=== PATIENT | female | born 1980 | race Caucasian/White ===

== ENCOUNTER 2022-07-06 16:16 | Emergency (ER) | payer OTHER, SELFPAY ==
[2022-07-06 16:38] VITALS: BP 138/92; PULSE 92; RESP 18; TEMP 36.7; O2SAT 100; BMI 51.5
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
== END 2022-07-06 17:31 | disposition home or self-care (01) ==
LOC: ED 17:25
PROVIDERS: Emergency Provider Emergency Medicine Emergency Medical Services
DX: T59.811A Toxic effect of smoke, accidental (unintentional), initial encounter (principal); Y92.038 Other place in apartment as the place of occurrence of the external cause
CPT/HCPCS: 82375; 99283; 99284

== ENCOUNTER 2024-12-26 20:55 | Emergency (ER) | payer OTHER, SELFPAY ==
--- OUTSIDE RECORDS SUMMARY | 2024-12-26 20:58 | XMS_ITS | Clinical Summary ---
Author Organization [facility] Address [address] [place] [id number] Care Team Providers Care [employer] Name Role Phone Pcp, No Primary Care Provider Unavailabl e Allergies No known active allergies Medications ferrous sulfate, 65 mg elemental, (Iron, Ferrous Sulfate,) tabletIndicatio ns:Iron deficiency anemia secondary to inadequate dietary iron intake Take one tablet by mouth once to twice daily. Take on an empty stomach or with something acidic. 90 Tablet 1 4 Active Active Problems Problem Noted Date Diagnosed Date Iron deficiency anemia, unspecified 07/11/2012 Immunizations Immunization Administration Dates Next Due COVID-19 vaccine (Moderna 100mcg/0.5mL) PF, MDV 09/24/2020 DTaP 08/11/1983 Influenza, IIV3 (Age >=3 years) 05/29/20 15,06/05/2014,05/23/2013,2011,04/26/2011,05/05/2010 Influenza, IIV4 (=>6mos) MDV 06/11/2019 Polio Virus, Unspecified 08/11/1983 Tdap 11/25/2023 Family History Medical History Relation Name Comments Cancer Father bladder, spine, lymph nodes Heart Disease Father MS Cancer-breast Mother diagnosed in h er 70s Stroke Mother in a wheelchair Cancer-breast Sister 1 Cancer-ovarian No Family History Relation Name Status Comments Father Mother Sister 1 Sister 2 Alive Sister 3 Alive Sister 4 Alive Social History Tobacco Use Types Packs/Day Years Used Date Smoking Tobacco: Never Smokeless Tobacco: Never Tobacco Cessation:Counseling Given: Yes Alcohol Use Standard Drinks/Week Comments Yes 0 (1 standard drink = 0.6 oz pur e alcohol) Couple every 2 weeks PHQ-2 Answer Date Recorded PHQ-2 TOTAL SCORE 0 11/25/2023 Social Connections Answer Date Recorded Do you often feel lonely or isolated from those around you? 0 11/25/2023 Financial Resource Strain Answer Date R ecorded Difficulty of Paying Living Expenses 2 11/25/2023 Difficulty of Paying Living Expenses 1 11/25/2023 Food Insecurity Answer Date Recorded Do you worry your food will run out before you are able to buy more? 1 11/25/2023 Transportation Needs Answer Date Record ed Does lack of transportation keep you from medica l appointments? 1 11/25/2023 Does lack of transportation keep you from work, meetings or getting things that you need? 1 11/25/2023 Housing Stability Answer Date Recorded What is your housing situation today? 1 11/25/2023 Utilities Answer Date Recorded Do you have trouble paying f or utilities (for example, heat, electricity, water, phone)? 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 file Not on file Not on file Obstetrics History Para Term AB IAB SAB Ectopic Multiple Livin g Live Births 0 0 0 0 0 0 0 0 0 0 Last Filed Vital Signs Vital Sign Reading Time Taken Comments Blood Pressure 139/83 11/25/2023 3:08 PM CDT Pulse 111 11/25/2023 3:08 PM CDT Temperature 36.9 C (98.4 F) 11/13/2018 1:02 PM CDT Respiratory Rate 18 05/11/2010 12:1 0 PM CDT Oxygen Saturation 98% 11/25/2023 3:08 PM CDT Inhaled Oxygen Concentration - - Weight 137.2 kg (302 lb 6.4 oz) 11/25/2023 3:08 PM CDT Height 164.6 cm (5' 4.8) 11/25/2023 3:08 PM CDT Body Mass Index 50.63 11/25/2023 3:08 PM CDT Plan of Treatment Health Maintenance Due Date Last Done Comments Hepatitis B series for 19+ (1 of 3 - 19+ 3-dose series) 1998 Pap test for age 21-65 06/18/2017 4, 07/11/2012, 07/11/2012 COVID-19 vaccine series (2023- season) 2024 06/18/2021, 09/24/2020, 08/27/2020 Colonoscopy through age 75 2024 BMI (ht and wt on same day) for age 18+ 11/24/2024 11/25/2023, 11/13/2018, 04/17/2018, Additional history exists Depression screening for age 12+ 11/24/2024 11/25/2023, 04/17/2018 Mammogram for age 45-75 11/28/2024 11/29/2023 Influenza Vaccine (Season Ended) 2025 06/11/2019, 05/29/2015, 06/05/2014, Additional history exists Lipids for age 45-75 11/24/2028 11/25/2023, 07/11/20 12 Tetanus booster 11/24/2033 11/25/2023, 06/07/2011 HIV for age 15-65 Completed 11/25/2023 Hepatitis C screening for age 18-79 Completed 11/25/2023 Tdap Completed 11/25/2023 Pneumococcal series for age 6-49 Aged Out No longer eligible based on patient's age to complete this topic Procedures Procedure Name Priority Date/Time Associated Diagnosis Comments XR MAMMO SAL BILAT SCREEN Routine 11/29/2023 3:54 PM CDT Visit for screening mammogram ANTI HIV 1/2 Routine 11/25/2023 4:04 PM CDT Encounter for screening for HIV ANTI HCV Routine 11/25/2023 4:04 PM CDT Encounter for hepatitis C screening test for low risk patient LIPID PANEL W REFLEX MEASURED LDL Routine 11/25/2023 4:04 PM CDT Lipid screening NEAR EAST ARCHEOLOGY PROFESSOR THIN PREP PAP DIAGNOSTIC IMAGED Routine 06/18/2014 4:44 PM HOTEL ROOM ATTENDANT ASCUS favoring benign from Last 3 Months or Most Recently Relevant to Health Maintenance Results * XR MAMMO SAL BILAT SCREEN (11/29/2023 3:54 PM CDT) Anatomical Region Laterality Modality BREASTS, Breast Left, Breast Right Bilateral Mammography Impressions 11/30/2023 2:42 PM CDT There is no radiographic evidence for malignancy. Recommend annual mammograms. MAMMOGRAM ASSESSMENT: ACR 1 Negative PATIENTS: You will also receive a letter with your examination results in an easy to read format. If you have questions about your results, please contact your referring provider. Narrative 11/30/2023 2:42 PM CDT For Patients: As a result of the Century Cures Act, medical imaging exams and procedure reports are released immediately into your electronic medical record. You may view this report before your referring provider. If you have questions, please contact your health care provider. XR MAMMO SAL BILAT SCREEN [[id number]] CLINICAL HISTORY: This is an asymptomatic 43 y.o. patient. INDICATION FOR EXAM: Mammogram Screening. TECHNIQUE: CC & MLO views were obtained. This study was evaluated with the assistance of Computer-Aided Detection. Breast Tomosynthesis was used in interpretation. COMPARISON FILM: This is a baseline study. FINDINGS: The breasts have scattered areas of fibroglandular density. There are no dominant masses, suspicious micro calcifications or areas of architectural distortion. us Leticia HARRIS MAMMO Final Res ult * LIPID PANEL W REFLEX MEASURED LDL [[id number]] (11/25/2023 4:04 PM CDT) CHOLESTEROL,TOTAL 112 100 - 199 mg/dL 11/25/2023 9:01 PM CDT [facility] Comment: Cholesterol, Total Reference Ranges Desirable <200 mg/dL Borderline 200-239 mg/dL High >=240 mg/dL TRIGLYCERIDES 77 <150 mg/dL 11/25/2023 9:01 PM CDT [facility] HDL CHOLESTEROL 46 >40 mg/dL 9:01 PM CDT [facility] NON-HDL CHOLESTEROL 66 <145 mg/dl 11/25/2023 9:01 PM CDT [facility] CHOL/HDL RATIO 2.43 <4.50 11/25/2023 9:01 PM CDT [facility] LDL CHOLESTEROL 51 <=130 mg/dL 11/25/2023 9:01 PM CDT [facility] VLDL CHOLESTEROL 15 <=30 mg/dL 11/25/2023 9:01 PM CDT [facility] PROVIDER ORDERED STATUS RANDOM 11/25/2023 9:01 PM CDT [facility] Blood BLOOD SPECIMEN / Unknown Venipuncture / Unknown 11/25/2023 4:04 PM CDT 11/25/2023 4:05 PM CDT us Leticia HARRIS CHEMISTRY Final Res ult Performing Organization Address [facility] Co de Phone Number [facility] [address] [place] [id number], [place] * ANTI HCV [[id number]] (11/25/2023 4:04 PM CDT) HEPATITIS C ANTIBODY Non-Reacti ve Non-React ra 11/25/2023 8:55 PM CDT [facility] Comment:Please note, per www .CDC.gov: If a patient is known to be at high risk of HCV infection, or is symptomatic, and the physician's suspicion of HCV infection is high, HCV RNA testing is often employed and is of diagnostic value, even after an initial negative anti-HCV test result. Blood BLOOD SPECIMEN / Unknown Venipuncture / Unknown 11/25/2023 4:04 PM CDT 11/25/2023 4:05 PM CDT us Leticia HARRIS SEND OUTS Final Res ult Performing Organization Address City/[facility]/ZIP Co de Phone Number [facility] [address] [place] [id number], [place] * ANTI HIV 1/2 [[id number]] (11/25/2023 4:04 PM CDT) HIV-1/HIV-2 SCREEN Non-Reacti ve Non-Reacti ve 11/25/2023 9:44 PM CDT [facility] Comment:HIV-1 p24 and HIV-1/ HIV-2 Ab Not Detected. Blood BLOOD SPECIMEN / Unknown Venipuncture / Unknown 11/25/2023 4:04 PM CDT 11/25/2023 4:05 PM CDT Leticia HARRIS SEND OUTS Final Res ult [facility] [facility] [address] [place] [address], * NEAR EAST ARCHEOLOGY PROFESSOR THIN PREP PAP DIAGNOSTIC IMAGED (06/18/2014 4:44 PM HOTEL ROOM ATTENDANT) NEAR EAST ARCHEOLOGY PROFESSOR CYTOLOGY See Anatomic Pathology case 06/23/2014 5:03 PM HOTEL ROOM ATTENDANT [facility] Specimen (specimen) Non-Blood / Unknown 06/18/2014 4:44 PM HOTEL ROOM ATTENDANT 06/18/2014 4:44 PM HOTEL ROOM ATTENDANT us [place] HARRIS PATHOLOGY/CYTOLOGY Final R esult Performing Organization Address City/[facility]/ZIP Co de Phone Number [facility] [address] [place] [address], from Last 3 Months or Most Recently Relevant to Health Maintenance Insurance [facility] [employer] NONPROFIT INSURANCE [employer] Care Teams [employer] Relationship Specialty Start Date End Date Pcp, No . PCP - General 06/21/23
[2024-12-26 20:59] VITALS: BP 149/96; PULSE 94; RESP 20; TEMP 36.6; O2SAT 98
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
[2024-12-26] MEDS: LIDOCAINE 1% 5 ml (pf) 5 ML VIAL 2.1 ML IM (21:32)
[2024-12-26] MEDS: cefTRIAXone 1 GM VIAL IM (21:32)
--- OUTSIDE RECORDS SUMMARY | 2024-12-27 11:46 | XMS_ITS | Clinical Summary ---
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 [employer] Gender Identity Not on file Sexual Orientation [...] 11/25/2023 3:08 PM CDT Plan of Treatment Upcoming Encounters Date Type Department Care Team (Late st Contact Info) Description 01/01/2025 10:35 AM CDT Office Visit [facility] [address] [place] [id number] Rachael Sherwood DO [address] [place] [id number] Health Maintenance Due Date Last Done Comments Hepatitis B series for 19+ (1 of 3 - 19+ 3-dose series) 1998 Pap test for age 21-65 06/18/2017 4, 07/11/2012, 07/11/2012 COVID-19 vaccine series ( season) 2024 06/18/2021, 09/24/2020, 08/27/2020 Colonoscopy through [...] Routine 11/25/2023 4:04 PM CDT Lipid screening SPECIAL EDUCATION CASE MANAGER THIN PREP PAP DIAGNOSTIC IMAGED Routine 06/18/2014 4:44 PM [employer]UAL ASCUS favoring benign from Last 3 Months [...] care provider. XR MAMMO SAL BILAT SCREEN [[id number]] CLINICAL HISTORY: This is an asymptomatic 43 [...] * LIPID PANEL W REFLEX MEASURED LDL [[id number]] (11/25/2023 4:04 PM CDT) CHOLESTEROL,TOTAL 112 100 - 199 mg/dL 11/25/2023 9:01 PM CDT [facility] Comment: Cholesterol, Total Reference Ranges Desirable <200 mg/dL Borderline 200-239 mg/dL High >=240 mg/dL TRIGLYCERIDES 77 <150 mg/dL 11/25/2023 9:01 PM CDT [facility] HDL CHOLESTEROL 46 >40 mg/dL 9:01 PM CDT [facility] NON-HDL CHOLESTEROL 66 <145 mg/dl 11/25/2023 9:01 PM CDT [facility] CHOL/HDL RATIO 2.43 <4.50 11/25/2023 9:01 PM CDT [facility] LDL CHOLESTEROL 51 <=130 mg/dL 11/25/2023 9:01 PM CDT [facility] VLDL CHOLESTEROL 15 <=30 mg/dL 11/25/2023 9:01 PM CDT [facility] PROVIDER ORDERED STATUS RANDOM 11/25/2023 9:01 PM CDT [facility] Blood BLOOD SPECIMEN / Unknown Venipuncture / Unknown 11/25/2023 4:04 PM CDT 11/25/2023 4:05 PM CDT Leticia HARRIS CHEMISTRY Final Res ult [facility] [address] [place] [address], * ANTI HCV [51915.2] (11/25/2023 4:04 PM CDT) HEPATITIS C ANTIBODY Non-Reacti ve Non-React ra 11/25/2023 8:55 PM CDT [facility] Comment:Please note, per www .CDC.gov: If [...] OUTS Final Res ult Performing Organization Address City/[facility]/ZIP Co de Phone Number [facility] [address] [place] [address], [place] * ANTI HIV 1/2 [[id number]] (11/25/2023 4:04 PM CDT) HIV-1/HIV-2 SCREEN Non-Reacti ve Non-Reacti ve 11/25/2023 9:44 PM CDT [facility] Comment:HIV-1 p24 and HIV-1/ HIV-2 Ab Not Detected. Blood BLOOD SPECIMEN / Unknown Venipuncture / Unknown 11/25/2023 4:04 PM CDT 11/25/2023 4:05 PM CDT Leticia HARRIS SEND OUTS Final Res ult Performing Organization Address [facility]/ZIP Co de Phone Number [facility] [address] [place] [address], [place] * SPECIAL EDUCATION CASE MANAGER THIN PREP PAP DIAGNOSTIC IMAGED (06/18/2014 4:44 PM S[employer]UGHTERER REL[employer]IOUS [employer]ITUAL) SPECIAL EDUCATION CASE MANAGER CYTOLOGY See Anatomic Pathology case 06/23/2014 5:03 PM [employer]UAL [facility] Specimen (specimen) Non-Blood / Unknown 06/18/2014 4:44 PM [employer] 06/18/2014 4:44 PM [employer] R[employer]UAL [place] HARRIS PATHOLOGY/CYTOLOGY Final R esult [facility] [address] [place] [address], from Last 3 Months or Most Recently Relevant to Health Maintenance Insurance [facility] INDIV[employer] AND FAMILY PLANS NONPROFIT INSURANCE TRUST Care Teams Supervisor Painting Relationship Specialty Start Date End Date Pcp, No . PCP - General 06/21/23
== END 2024-12-26 21:34 | disposition home or self-care (01) ==
LOC: ED 12-27 11:44
PROVIDERS: Emergency Provider Family Medicine
DX: L03.115 Cellulitis of right lower limb (principal)
CPT/HCPCS: 96372; 99284; J0696